=== PATIENT | male | born 1950 | race Caucasian/White ===

== ENCOUNTER 2017-02-15 14:37 | Day surgery (SDC) | payer OTHER ==
[2017-02-15] VITALS (8 sets, daily range): BP systolic 98–126; BP diastolic 51–74; PULSE 46–54; RESP 10–16; O2SAT 95–99
[~2017-02-15] VITALS: Ht 180.3 cm; Wt 104.4 kg
[~2017-02-15 14:37] MED LIST: ASPI-973 PO; Acetaminophen IV 1,000 MG in IV Premix 1 EACH IV ONE; Lactated Ringer's 1,000 ML IV SCH; SIMV40TA5 PO; TADA5TAB2 PO
[2017-02-15] MEDS ORDERED: Dexamethasone 4 mg/mL Inj ONE (14:38)
[2017-02-15] MEDS ORDERED: Ondansetron 2 mg/mL 2 mL Inj ONE (14:38)
[2017-02-15] MEDS ORDERED: Propofol 10,000 mCg/mL 20 mL Inj ONE (14:38)
[2017-02-15] MEDS ORDERED: MetoCLOpramide 5 mg/mL 2 mL Inj ONE (14:38)
[2017-02-15] MEDS ORDERED: Lidocaine PF 1% 30 mL Inj ONE (14:38)
[2017-02-15] MEDS ORDERED: Lactated Ringer's 1,000 ML IV ONE (15:30)
[2017-02-15] MEDS ORDERED: CeFAZolin 2 Gm/50 mL D5W Duplex Bag IV ONE (15:45)
--- NOTE | 2017-02-15 18:23 | PCM.HPANE ---
Patient Data Date of Service: Feb 15, 2017 Surgeon Admitting Provider: Attending Provider:Delmer Liriano MD Primary Care Physician:Pascual Parks MD Other Provider:Luis Arevalo Anesthesia Reason for Visit Right Kidney Stone Ht/WT & BMI Height (Feet): 5 Height (Inches): 11 Weight (Kilograms): 104.4 Body Mass Index 32.00 Allergies Coded Allergies: bee venom protein (honey bee) (Verified Allergy, Intermediate, swelling and shortness of breath, 02/15/17) Past Anesthesia History Anesthesia History: Denies:: Abnormal Airway, Anesthesia Reactions, Difficult Intubation, Fam Anesthesia Reaction, Fam Malignant Hypertherm, Malignant Hyperthermia Diabetes History Hx Diabetes?: No MRSA MRSA: No Medications Blood Thinner: Aspirin Hypertension Medication: No Home Meds Incl Beta Van: No Reported Medications Aspirin 81 Mg [id number] Mg PO DAILY Ref 0 02/13/17 Simvastatin 40 Mg [id number] Mg PO HS 30 Days Ref 0 02/13/17 Tadalafil (Cialis)5 Mg Tablet5 Mg PO PRN PRN for sexual activity Ref 0 As directed by physician. 02/13/17 History History of ENT Problems?: No HEENT History: Denies:: Abnormal Airway Cataracts Difficult Intubation Glaucoma Hearing Problem Denture Type: None Teeth Condition: Within Normal Limits Hx of Heart Problems?: No Cardiovascular History: Denies:: Chest Pain Coronary Artery Disease Irregular Heartbeat Hx of Respiratory Problem?: No Respiratory History: Positive for:: Pneumonia (20yrs ago) Denies:: Dyspnea Tuberculosis Use of C-PAP Machine (Has not used in 5 years secondary to weight loss) Use of Inhalers / NEBS Other Resp Pertinent History: NORAH improved with weight loss Hx Neurologic Problems?: No Neurological History: Denies:: CVA Seizures TIA Hx of GI Problems?: Yes Gastrointestinal History: Positive for:: Gastroesphageal Reflux (occ when I overeat in evenings) Denies:: Liver Disease Hx of Problems?: Yes Genitourinary History: Positive for:: Kidney Stones (reason for admission) Denies:: HX of Hemodialysis HX of Peritoneal Dialysis: No Male Hx: Denies:: Prostate Problems Scrotal Mass Testicular Surgery Skin History: Denies:: History Skin Disorders? Hx Musculoskeletal Problems?: Yes Musculoskeletal History: Positive for:: Back Injury (muscle strain ) Denies:: Degenerative Joint Fibromyalgia Joint Replacement Musculoskeletal Trauma Myasthenia Gravis Osteoarthritis Rheumatoid Arthritis Systemic Lupus Hx of Psycho/Social Problems?: No Hx Surgeries?: Yes (tendon reconnection left arm 20 yrs ago, colonoscopy) Other History: Positive for:: Hospitalization (pelvis fx Horse fell on him 40 yrs ago) Denies:: Cancer Thyroid Disease History Blood Transfusions: Positive for:: Accept Blood Products? Denies:: Blood Transfusions Hx Diabetes: No Hx Alcohol Use: YesAlcoholic Drinks Per Day: 3-4 mixed drinks a week and wine Hx Substance Use: No Smoking Status: Never Smoker Stop/Bang Treated for Sleep Apnea?: Yes Do You Have a CPAP Machine?: No S-Snoring: Do You Snore Loudly: No T-Tired: feel tired, fatigued: Yes O-Obsered: Observed not breath: No P-Blood Pressure: treated: No B- Body Mass Index > 35 kg/m2: No A- Age over 50: Yes N- Neck Large Circumference: Yes G- Gender Male: Yes NORAH Total Score: 4 NORAH Risk Assessment: High Risk, =/>3 Yes NORAH Category 2: Yes Risk Assessment Category Category 1A: Patient has history of documented sleep apnea, and HAS NOT received any narcotic, sedative or anesthesia administration during this stay. Category 1B: Patient has history of documented sleep apnea, and HAS received any narcotic , sedative or anesthesia administration during this stay Category 2: Patient has SUSPECTED Obstructive Sleep Apnea, and HAS received any narcotic , sedative or anesthesia administration during this stay. Category 3: Patient has SUSPECTED Obstructive Sleep Apnea and HAS NOT received narcotic, sedative or anesthesia administration during this stay. Category 4: Outpatient in Procedural Areas with known sleep apnea or who screen positive for High Risk via the STOP/BANG questionnaire. Exam Exam Vital Signs Vital Signs Date Time Temp Pulse Resp B/P Pulse Ox O2 Delivery O2 Flow Rate FiO2 02/15/17 15:31 35.9 16 126/55 95 Room Air General Appearance: Alert, Oriented X3, Cooperative, No Acute Distress HEENT/AIRWAY: MP 2 Lungs: Normal Air Movement Heart: Exam Unremarkable, Regular Rate/Rhythm, Normal S1, Normal S2, No Murmurs /Rubs/Gallops Meds/Labs/Diagnostics Admission Meds Current Medications Lactated Ringer's (Lr) 1,000 ml @ ud STK-MED ONCE IV Last administered on 02/15t 15:30; Start 02/15/17 at 15:30; Stop 02/15/17 at 15:43; Status DC Labs Test 02/15/17 15:40 Uric Acid 5.7mg/dL (2.6-7.2) Calcium Level 9.4mg/dL (8.5-10.1) Plan Impression Patient chart reviewed, patient interviewed and anesthestic plan with risks, benefits, and alternatives discussed, and informed consent obtained. NPO per Anesth. Guidelines: Yes ASA Physical Status: ASA1 Normal Healthy Anesthetic Plan: GA Bene/Risks/Altern/Consents: Yes HP Complete Prior to Induction: Yes Pascual Anna MD Feb 15, 2017 18:23
[2017-02-15] MEDS ORDERED: Lactated Ringer's 1,000 ML IV SCH (19:10)
[2017-02-15] MEDS ORDERED: Ondansetron 2 mg/mL 2 mL Inj IVPUSH PRN (19:10)
[2017-02-15] MEDS ORDERED: HYDROmorphone 1 mg/mL Inj IVPUSH PRN (19:10)
[2017-02-15] MEDS ORDERED: Phenylephrine 10,000 mCg/mL Inj IVPUSH PRN (19:10)
[2017-02-15] MEDS ORDERED: Dexamethasone 4 mg/mL Inj IVPUSH PRN (19:10)
[2017-02-15] MEDS ORDERED: fentaNYL-PF 50 mCg/mL 2 mL Inj IVPUSH PRN (19:10)
[2017-02-15] MEDS ORDERED: Lactated Ringer's 500 ML IV PRN (19:10)
[2017-02-15] MEDS ORDERED: MetoCLOpramide 5 mg/mL 2 mL Inj IVPUSH PRN (19:10)
[2017-02-15] MEDS ORDERED: EPHEDrine Sulfate 50 mg/mL Inj IVPUSH PRN (19:10)
[2017-02-15] MEDS ORDERED: Furosemide 10 mg/mL 2 mL Inj IV ONE (19:25)
--- NOTE | 2017-02-15 20:10 | PCM.ANEP1 ---
Post Anesthesia PACU Phase 1 Assessment Date of Service: Feb 15, 2017 Vital Signs Vital Signs Date Time Temp Pulse Resp B/P Pulse Ox O2 Delivery O2 Flow Rate FiO2 02/15/17 20:00 36 46 16 112/52 97 Room Air 02/15/17 19:50 35.8 50 14 101/54 96 Room Air 02/15/17 19:45 49 15 102/53 97 Room Air 02/15/17 19:40 50 14 104/56 99 Simple Mask 6 02/15/17 19:35 47 10 98/57 99 Simple Mask 6 02/15/17 19:32 36.6 54 15 118/74 98 Simple Mask 6 02/15/17 15:31 35.9 16 126/55 95 Room Air Anesthetic Administered: GA Level of Alertness: Awake, talking WOODS's with Equal Strength: Yes Pain: No Pain Scale Score: 0 Nausea or Vomiting: No CV Function & Hydration Stable: Yes Airway Device: none Oxygen Delivery: Simple Mask Lungs: Normal Air Movement Summary 02/15/17 20:00 36 46 16 112/52 97 Room Air PACU Phase 2 Assessment Complications: No Follow up Care: N/A Patient Instructions Provided: N/A Pascual Anna MD Feb 15, 2017 20:10
--- NOTE | 2017-02-15 20:21 | OP ---
[address] [address] OPERATIVE REPORT PATIENT: WENDI DUNLAP : 1950 MR#: [id number] ADMIT: 02/15/2017 JOB ID: [id number] DATE OF SURGERY: 02/15/2017 SURGEON: Delmer Liriano MD PREOPERATIVE DIAGNOSIS(ES): 1. A 5 x 6 mm right ureteropelvic junction calculus. 2. Intermittent gross hematuria and renal colic. POSTOPERATIVE DIAGNOSIS(ES): 1. A 5 x 6 mm right ureteropelvic junction calculus. 2. Intermittent gross hematuria and renal colic. OPERATION PERFORMED: Right extracorporeal shock wave lithotripsy (maximal power level 6.0 x 2000 shocks). ANESTHESIOLOGIST: Pascual Anna MD ANESTHESIA: General. PROCEDURE SUMMARY: The patient was positioned supine on the lithotripsy gurney and the above-described stone was localized in the X, Y and Z plane. Lithotripsy was then commenced at minimal power level and gradually increased to maximum power level. The stone and its fragments were relocalized numerous times throughout the case using C-arm radiography. The procedure was then terminated. The patient was awakened, transferred to the gurney and transferred to the recovery area awake in stable condition. The patient tolerated the procedure well.
== END 2017-02-15 23:59 | disposition home or self-care (01) ==
LOC: SAS 14:37
PROVIDERS: ATTEND Specialist
DX: N20.0 Calculus of kidney (principal); R31.0 Gross hematuria; K21.9 Gastro-esophageal reflux disease without esophagitis; Z79.82 Long term (current) use of aspirin; Z79.899 Other long term (current) drug therapy
CPT/HCPCS: 36415; 50590; 82310; 83970; 84550; J0131; J1100; J1940; J2250; J2405; J2704; J2765; J7120